=== PATIENT | female | born 1945 | race Two or more races ===

== ENCOUNTER 2016-06-16 17:30 | Emergency (ER) | payer MEDICARE ==
[2016-06-16] MEDS ORDERED: FAMOTIDINE 20 MG TABLET ONE (20:07)
[2016-06-16] MEDS ORDERED: DEXAMETHASONE SOD PHOS 10 MG/1 ML VIAL ONE (20:07)
== END 2016-06-16 20:22 | disposition home or self-care (01) ==
LOC: ED 17:30
DX: L50.9 Urticaria, unspecified (principal)
CPT/HCPCS: 99283 ×2; J1100; A9270